=== PATIENT | male | born 1995 | race Caucasian/White ===

== ENCOUNTER 2023-03-19 18:42 | Emergency (ER) | payer BC ==
[2023-03-19 18:58] VITALS: RESP 18; TEMP 101.9; BMI 33.2
[2023-03-19] MEDS ORDERED: ACETAMINOPHEN 500 MG TABLET (FP) PO ONE (19:34)
[2023-03-19] MEDS ORDERED: IBUPROFEN 600 MG TABLET (FP) PO ONE ×2 (19:34→19:52)
[2023-03-19] MEDS ORDERED: ONDANSETRON 4 MG TABLET PO ONE (19:51)
[2023-03-19] MEDS ORDERED: ONDANSETRON *ODT* 4 MG TABLET ONE (19:52)
[2023-03-19 20:49] VITALS: BP 128/86; PULSE 106
[2023-03-19 20:49] LABS: THROAT:GRP A STREP DETECTED (NOTDETECTED)
[2023-03-19] MEDS ORDERED: AZITHROMYCIN 250 MG TABLET PO ONE (21:07)
[2023-03-19] MEDS ORDERED: AZITHROMYCIN 500 MG TABLET ONE (21:17)
== END 2023-03-19 21:20 | disposition home or self-care (01) ==
LOC: JERFT 18:42
DX: R50.9 Fever, unspecified (principal); R51.9 Headache, unspecified; R11.2 Nausea with vomiting, unspecified; R07.0 Pain in throat; R09.81 Nasal congestion; J02.0 Streptococcal pharyngitis; Z20.822 Contact with and (suspected) exposure to COVID-19
CPT/HCPCS: 0241U-QW; 87651; 99283-25

== ENCOUNTER 2023-03-25 11:48 | Emergency (ER) | payer BC ==
[2023-03-25 11:57] VITALS: BP 135/91; PULSE 65; RESP 18; TEMP 98.9; BMI 31.8
[2023-03-25] MEDS ORDERED: IBUPROFEN 600 MG TABLET (FP) PO ONE ×2 (12:54→12:55)
== END 2023-03-25 13:10 | disposition home or self-care (01) ==
LOC: JERFT 11:48
DX: M54.50 Low back pain, unspecified (principal)
CPT/HCPCS: 99283-25